=== PATIENT | female | born 1960 | race Caucasian/White ===

== ENCOUNTER 2018-12-30 12:16 | Emergency (ER) | payer BC ==
[2018-12-30] MEDS ORDERED: NORMAL SALINE 1000 ML 1,000 ML IV ONE (12:25)
--- NOTE | 2018-12-30 12:28 | ER Document Report ---
ED Medical Screen (RME) - General Stated Complaint: NEAR SYNCOPE Time Seen by Provider: 12/30/18 12:25 Notes: Patient is a 58-year-old female who presents the emergency department after a almost syncopal episode that happened prior to arrival. She was at the states very sharp best and stepped out of her car and became lightheaded and her legs gave out and she fell to the floor. The fall was witnessed and the patient denies losing any consciousness. She denies actually hitting her head. She states that she grabbed a blanket and lowered herself to the ground. She denies any pain or shortness of breath. Patient states [place] and yesterday she was drinking beer but her last drink was at 2 PM yesterday. Patient states that she did feel a little nauseous, but denies any nausea at this time. Patient has a history of IBS and states that she constantly has diarrhea, which is her normal. Patient also states that she stays well- hydrated. Exam: Soft nontender abdomen. I have greeted and performed a rapid initial assessment of this patient. A comprehensive ED assessment and evaluation of the patient, analysis of test results and completion of medical decision making process will be conducted by an additional ED providers.
[2018-12-30 12:57] LABS: ABSOLUTE EOSINOPHILS # (AUTO) 0.1 10^3/uL (0.0-0.6); ABSOLUTE LYMPHOCYTES (AUTO) 1.5 10^3/uL (0.5-4.7); ABSOLUTE MONOCYTES (AUTO) 0.5 10^3/uL (0.1-1.4); ABSOLUTE NEUT (AUTO) 4.8 10^3/uL (1.7-8.2); BASOPHILS % (AUTO) 0.5 % (0-2); HEMATOCRIT 43.1 % (36.0-47.0); HEMOGLOBIN 14.9 g/dL (12.0-15.5); LYMPHOCYTES % (AUTO) 21.5 % (13-45); MEAN CORPUSCULAR HEMOGLOBIN 32.6 pg (27.0-33.4); MEAN CORPUSCULAR HGB CONC 34.5 g/dL (32.0-36.0); MEAN CORPUSCULAR VOLUME 95 fl (80-97); MONOCYTES % (AUTO) 7.7 % (3-13); PLATELET COUNT 260 10^3/uL (150-450); RED BLOOD COUNT 4.56 10^6/uL (3.72-5.28); RED CELL DISTRIBUTION WIDTH 12.5 % (11.5-14.0); SEGMENTED NEUTROPHILS % (AUTO) 69.3 % (42-78); TOTAL CELLS COUNTED % (AUTO) 100 %; WHITE BLOOD COUNT 6.9 10^3/uL (4.0-10.5)
[2018-12-30 13:13] LABS: ALBUMIN 4.4 g/dL (3.5-5.0); ALKALINE PHOSPHATASE 68 U/L (38-126); ANION GAP 8 (5-19); ASPARTATE AMINO TRANSFERASE 38 U/L (14-36); BILIRUBIN,DIRECT 0.2 mg/dL (0.0-0.4); BILIRUBIN,TOTAL 0.6 mg/dL (0.2-1.3); BLOOD UREA NITROGEN 15 mg/dL (7-20); CALCIUM 9.6 mg/dL (8.4-10.2); CARBON DIOXIDE 28 mmol/L (22-30); CHLORIDE 100 mmol/L (98-107); CREATINE KINASE 428 U/L (30-135); GLUCOSE 126 mg/dL (75-110); POTASSIUM 3.9 mmol/L (3.6-5.0); TOTAL PROTEIN 6.8 g/dL (6.3-8.2)
[2018-12-30 13:24] LABS: CREATINE KINASE MB 1.77 ng/mL (<4.55)
--- NOTE | 2018-12-30 13:25 | ER Document Report ---
ED General - General Stated Complaint: NEAR SYNCOPE Time Seen by Provider: 12/30/18 12:25 Notes: 58-year-old female with a history of orthostatic syncope presents the emergency department after a near syncopal episode. Patient states that she had been driving the car in the air conditioning for at least 20 minutes and then she went to get out of the car into the heat, immediately felt dizzy and nauseated and tried to lower herself to the ground using a sheet. Patient says she almost passed out but does not think she completely passed out. States that when she was down on the ground she was fully awake again but too weak to get up. Patient states she then felt a click in her brain and then improved but still does not feel completely better. Patient states her symptoms of general malaise started around 1130 today and was accompanied by nausea but no vomiting or diarrhea. Patient denies any pain anywhere including her head, neck, chest or abdomen. Denies sweats or chills, denies any chest pain. Admits to history of IBS alternating diarrhea and constipation, states it is been diarrhea for the past 1-1/2 weeks. - Related Data Allergies/Adverse Reactions: No Known Allergies Allergy (Unverified 12/30/18 13:16) Past Medical History - General Information source: Patient - Social History Smoking Status: Current Some Day Smoker Frequency of alcohol use: Social Drug Abuse: Marijuana Family History: CAD - Father with an CO at 57. from this. Review of Systems - Review of Systems Constitutional: See HPI, Malaise, Weakness EENT: No symptoms reported Cardiovascular: See HPI Respiratory: No symptoms reported Gastrointestinal: See HPI Neurological/Psychological: See HPI -: Yes All other systems reviewed and negative Physical Exam - Vital signs Vitals: Temp 98.2 F 12/30/18 12:17 - Notes Notes: GENERAL: Alert, interacts well. No acute distress. HEAD: Normocephalic, atraumatic EYES: Pupils equal, round and reactive to light, extraocular movements intact. ENT: Oral mucosa moist, tongue midline. NECK: Full range of motion, supple, trachea midline. LUNGS: Clear to auscultation bilaterally, no wheezes, rales or rhonchi, no respiratory distress. HEART: Regular rate and rhythm, no murmurs, gallops, rubs. ABDOMEN: Soft, nontender, nondistended, bowel sounds present in all 4 quadrants. EXTREMITIES: Moves all 4 extremities spontaneously, no edema, radial and dorsalis pedis pulses 2/4 bilaterally. No cyanosis. NEUROLOGICAL: Alert and oriented x3, normal speech, cranial nerves II through XII grossly intact, biceps and patellar DTRs 2+ bilaterally. PSYCH: Normal mood, normal affect. SKIN: Warm, Dry, normal turgor, no rashes or lesions noted. Course - Re-evaluation Re-evalutation: 12/30/18 14:48 CBC unremarkable, CMP grossly unremarkable, d-dimer elevated, cardiac enzymes negative, EKG nonischemic. Patient does have risk factors for pulmonary embolism including recent long drive from [facility], increased cigarette smoking and estrogen use. Patient will be sent for CTA of chest. Patient updated on plan of care. 12/30/18 17:06 CT of the chest does not show any signs of dissection or pulmonary embolism. Patient feeling much better, has received fluids. This is likely ortho static/postural hypotension. Patient will be discharged home, encouraged to drink plenty of fluids and asked to follow-up with her primary care physician. Laboratory studies and reports from imaging studies were printed and handed to the patient. 12/30/18 17:07 - Vital Signs Vital signs: Temp Pulse Resp BP Pulse Ox 98.2 F 15 137/76 H 100 12/30/18 12:17 12/30/18 15:30 12/30/18 15:30 12/30/18 15:30 - Laboratory Result Diagrams: 12/30/18 12:44 12/30/18 12:44 Laboratory results interpreted by me: 12/30/18 12/30/18 12/30/18 12:44 12:44 14:40 D-Dimer 0.53 H Sodium 136.4 L Glucose 126 H AST 38 H Creatine Kinase 428 H Urine Ketones 20 H - EKG Interpretation by Me Additional EKG results interpreted by me: 12/30/18 17:07 EKG shows sinus rhythm at a rate of 84, normal axis, normal intervals, no ST segment elevations or depressions, some isolated T wave inversions in aVL which has very low voltage per my interpretation. Discharge - Discharge Clinical Impression: Orthostatic syncope Condition: Stable Disposition: HOME, SELF-CARE Additional Instructions: Orthostatic Hypotension You have orthostatic hypotension. Your blood pressure goes down when you stand up. Symptoms can include dizziness, transient loss of vision, ringing in the ears, nausea, and fainting. At this time, there's no evidence of a serious problem requiring hospitalization. Orthostatic hypotension can be caused by dehydration, poor nutrition, over- exercise, or medication. For some people, orthostatic hypotension is an ongoing problem, and no cause can be found. We usually treat orthostatic hypotension with fluids. We look for a treatable cause. If no cause was found, you should get enough rest, exercise moderately, and get plenty of fluids. When you feel the first symptoms suggesting you might faint, sit or squat down as quickly as you can. If symptoms don't go away quickly, lie down. Call the doctor or return if you are worsening or if new symptoms develop. I have printed you copies of your labs. I saw no signs of infection or kidney dysfunction. I saw no find signs of anemia or heart attack. We did not find a blood clot in your lungs. Please drink plenty of fluids and follow-up with your primary care physician.
[2018-12-30 13:27] LABS: TROPONIN I < 0.012 ng/mL
--- NOTE | 2018-12-30 14:29 | EKG REPORT ---
SEVERITY:- OTHERWISE NORMAL ECG - SINUS RHYTHM LOW VOLTAGE IN FRONTAL LEADS : Confirmed by: Avni Hernandez MD 30-Dec-2018 14:28:12
[2018-12-30 15:12] LABS: APPEARANCE,URINE CLEAR; BILIRUBIN,URINE NEGATIVE (NEGATIVE); COLOR,URINE YELLOW; GLUCOSE, URINE NEGATIVE (NEGATIVE); KETONES,URINE 20 mg/dL (NEGATIVE); LEUKOCYTE ESTERASE,URINE NEGATIVE (NEGATIVE); NITRITE,URINE NEGATIVE (NEGATIVE); PROTEIN,URINE NEGATIVE (NEGATIVE); URINE SPECIFIC GRAVITY 1.008; UROBILINOGEN,URINE NEGATIVE mg/dL (<2.0)
--- NOTE | 2018-12-30 16:32 | RADIOLOGY REPORT (SQ) ---
EXAM DESCRIPTION: CTA CHEST COMPLETED DATE/TIME: 12/30/2018 4:07 pm REASON FOR STUDY: syncope, elevated d-dimer COMPARISON: None. TECHNIQUE: CT scan of the chest performed using helical scanning technique with dynamic intravenous contrast injection. Images reviewed with lung, soft tissue and bone windows. Reconstructed coronal and sagittal MPR images reviewed. Additional 3 dimensional post-processing performed to develop Maximal Intensity Projection images (MS P). All images stored on PACS. All CT scanners at this facility use dose modulation, iterative reconstruction, and/or weight based d osing when appropriate to reduce radiation dose to as low as reasonably achievable (ALARA). [facility]: Dose Right [facility]: CareDose [facility]: Dose Right [facility]: Teradose 4D [facility]: [employer] CONTRAST TYPE AND DOSE: contrast/concentration: Isovue 350.00 mg/ml; Total Contrast Delivered: 57.0 ml; Total Saline Delivered: 72.0 ml Contrast bolus adequate for pulmonary arteries and aorta. RENAL FUNCTION: GFR > 60. RADIATION DOSE: CT Rad equipment meets quality standard of care and radiation dose reduction techniq ues were employed. CTDIvol: 6.6 - 14.3 mGy. DLP: 518 mGy-cm. . LIMITATIONS: Mild breathing motion. FINDINGS: LUNGS AND PLEURA: No masses, infiltrates, or pneumothorax. No pleural effusions or pleura l calcifications. AORTA AND GREAT VESSELS: No aneurysm. Contrast bolus not optimized for the aorta. HEART: No pericardial effusion. No significant coronary artery calcifications. PULMONARY ARTERIES: No emboli visualized in the main pulmonary arteries or the segmental branches. HILAR AND MEDIASTINAL STRUCTURES: No identified masses or abnormal nodes. HARDWARE: None in the chest. UPPER ABDOMEN: No significant findings. Limited exam. THYROID AND OTHER SOFT TISSUES: No masses. No adenopathy. BONES: No acute finding. 3D MIPS: Confirm above findings. OTHER: No other significant finding. IMPRESSION: No emboli visualized in the main pulmonary arteries or the segmental branches.No acute f indings. COMMENT: Quality ID # [id number]: Final reports with documentation of one or more dose reduction techniques (e.g., Automated exposure control, adjustment of the mA and/or kV according to patient size, use of iterative reconstruction technique) TECHNICAL DOCUMENTATION: JOB ID: [id number] [place]-72 2010 [facility]- All Rights Reserved [place] location - IP/workstation name: [employer]
[2018-12-30 17:11] VITALS: BP 139/77
== END 2018-12-30 17:21 | disposition home or self-care (01) ==
LOC: ER 12:16
DX: R55 Syncope and collapse (principal); R53.81 Other malaise; R11.0 Nausea; R19.7 Diarrhea, unspecified; R53.1 Weakness; R79.89 Other specified abnormal findings of blood chemistry; F17.210 Nicotine dependence, cigarettes, uncomplicated; F12.10 Cannabis abuse, uncomplicated; Z82.49 Family history of ischemic heart disease and other diseases of the circulatory system
CPT/HCPCS: 93005; 99284; 96360; 36415; 82553; 82550; 85025; 80053; 81001; 84484; 85379; 71275; 93010; J7030